=== PATIENT | male | born 1960 | race Caucasian/White ===

== ENCOUNTER → 2020-04-09 10:51 | Outpatient (CLI) | payer OTHER, SELFPAY ==
[2020-04-09 11:33] LABS: BUN Creatinine Ratio 22.1 (6-22); Blood Urea Nitrogen 17 mg/dL (9-20); Estimated Glomerular Filt Rate > 60.0 mL/min (>60)
--- NOTE | 2020-04-09 12:25 | DI.CT.S_ITS ---
PROCEDURE: CT ABDOMEN PELVIS W CON INDICATIONS: abd pain, mostly upper abd TECHNIQUE: After the administration of oral and intravenous contrast, 5 mm thick sections acquired from the diaphragms to the symphysis. 5 mm thick coronal and sagittal reformats were performed. For radiation dose reduction, the following was used: automated exposure control, adjustment of mA and/or kV according to patient size. COMPARISON: None. FINDINGS: Image quality: Excellent. ABDOMEN: Lung bases: Lung bases are clear. Heart size is normal. Solid organs: Liver is normal in size and enhancement. Gallbladder is normal. Biliary system is non-dilated. Pancreas enhances normally. Spleen is normal in size and enhancement. No adrenal nodules. Kidneys are normal in size and enhancement, without hydronephrosis. There is a 3.5 cm simple cyst in the inferior pole of the left kidney. A tiny 5 mm cortical cyst is seen in the right kidney. Peritoneum and bowel: Stomach, small bowel, and colon loops are normal in caliber and wall thickness. There is a large amount of stool in colon. Appendix is normal. No free fluid or air. Nodes and vessels: No retroperitoneal or mesenteric adenopathy. Aorta and inferior vena cava are normal in caliber. Miscellaneous: No ventral hernias. PELVIS: Genitourinary: Bladder wall thickness is normal. Miscellaneous: No inguinal hernias or adenopathy. Bones: No suspicious bony lesions. No vertebral body compression fractures. IMPRESSION: 1. A cause for abdominal pain is not definitively identified. 2. A large amount of stool in colon. 3. Bilateral simple appearing renal cysts. Dictated by: Alber Mejia M.D. on 04/09/2020 at 17:08 Approved by: Alber Mejia M.D. on 04/09/2020 at 18:09
== END ==
PROVIDERS: PCP Family Medicine; Referring Provider Specialist; Visit Provider Specialist
DX: R10.10 Upper abdominal pain, unspecified (principal); N28.1 Cyst of kidney, acquired
CPT/HCPCS: 36415; 74177; 82565; 84520; Q9967

== ENCOUNTER → 2020-12-03 09:56 | Outpatient (CLI) | payer OTHER, SELFPAY ==
[2020-12-03] MEDS: COVID-19 VACC #1, MRNA(MOD) 100 MCG/0.5 ML VIAL IM (10:04)
== END ==
PROVIDERS: PCP Family Medicine; Visit Provider Internal Medicine
DX: Z23 Encounter for immunization (principal)
CPT/HCPCS: 0011A; 91301

== ENCOUNTER → 2020-12-31 09:56 | Outpatient (CLI) | payer OTHER, SELFPAY ==
[2020-12-31] MEDS: COVID-19 VACC #2, MRNA(MOD) 100 MCG/0.5 ML VIAL IM (10:00)
== END ==
PROVIDERS: PCP Family Medicine; Visit Provider Internal Medicine
DX: Z23 Encounter for immunization (principal)
CPT/HCPCS: 0012A; 91301

== ENCOUNTER → 2021-06-26 08:09 | Outpatient (CLI) | payer OTHER, SELFPAY ==
[2021-06-26 20:00] LABS: COVID19 - ORCAS (NP or Nasal) Negative (Negative)
== END ==
PROVIDERS: PCP Physician Assistant; Visit Provider Family Medicine
DX: Z20.822 Contact with and (suspected) exposure to COVID-19 (principal)
CPT/HCPCS: U0003

== ENCOUNTER → 2024-01-10 10:11 | Outpatient (CLI) | payer MEDICARE, SELFPAY ==
[2024-01-10 19:29] LABS: Add Manual Diff / Slide Review NO; Basophils Absolute Auto 0 /uL (0-100); Basophils Percent Auto 0.8 % (0-2); Eosinophils Absolute Auto 100 /uL (0-450); Eosinophils Percent Auto 2.6 % (2-4); Hematocrit 41.9 % (41-53); Hemoglobin 14.4 g/dL (13.5-17.5); Lymphocytes Absolute Auto 1200 /uL (1100-4500); Lymphocytes Percent Auto 24.6 % (25-40); Mean Corpuscular HGB Conc 34.4 % (30-36); Mean Corpuscular Hemoglobin 31.5 PG (26-34); Mean Corpuscular Volume 91.7 fL (80-100); Monocytes Absolute Auto 400 /uL (0-900); Monocytes Percent Auto 9.2 % (3-14); Neutrophils Absolute Auto 3000 /uL (1500-7000); Neutrophils Percent Auto 62.8 % (50-75); Platelet Count 242 X10^3/uL (150-400); Red Blood Cell Count 4.57 X10^6/uL (4.5-5.9); Red Cell Distribution Width 13.4 % (11.6-14.8); White Blood Cell Count 4.8 X10^3/uL (4.5-11.0)
[2024-01-10 19:38] LABS: Alanine Aminotransferase 18 IU/L (<50); Albumin 4.5 g/dL (3.5-5.0); Albumin Globulin Ratio 1.6 (1.0-2.8); Alkaline Phosphatase 38 U/L (38-126); Aspartate Aminotransferase 28 IU/L (17-59); BUN Creatinine Ratio 16.9 (6-22); Blood Urea Nitrogen 13 mg/dL (9-20); Calcium 9.7 mg/dL (8.4-10.2); Carbon Dioxide 27 mmol/L (22-32); Chloride 104 mmol/L (98-107); Cholesterol 192 mg/dL (140-199); Estimated Glomerular Filt Rate > 60 mL/min (>60); Globulin 2.8 g/dL (1.7-4.1); Glucose 103 mg/dL (80-110); HDL Cholesterol 58 mg/dL (40-60); HEMOLYSIS < 15 (0-50); LDL Cholesterol Calculated 118 mg/dL (<100); Potassium 4.4 mmol/L (3.4-5.1); Sodium 138 mmol/L (137-145); Total Protein 7.3 g/dL (6.3-8.2); Triglycerides 78 mg/dL (35-150)
[2024-01-10 19:56] LABS: TSH w/ Reflex to FT4 2.29 uIU/mL (0.47-4.68)
[2024-01-10 19:58] LABS: Prostate Specific Antigen Scrn 0.607 ng/mL (0.1-4.0)
[2024-01-11 06:10] LABS: Fecal Immunochemical Test Negative (Negative)
== END ==
PROVIDERS: PCP Physician Assistant; Visit Provider Physician Assistant
DX: Z12.11 Encounter for screening for malignant neoplasm of colon (principal); Z12.5 Encounter for screening for malignant neoplasm of prostate; Z11.59 Encounter for screening for other viral diseases; Z13.6 Encounter for screening for cardiovascular disorders; R03.0 Elevated blood-pressure reading, without diagnosis of hypertension; R25.1 Tremor, unspecified; Z80.8 Family history of malignant neoplasm of other organs or systems; Z79.899 Other long term (current) drug therapy
CPT/HCPCS: 80053; 80061; 82274; 84443; 85025; 86803; G0103

== ENCOUNTER 2024-10-30 09:01 | Day surgery (SDC) | payer MEDICARE, SELFPAY ==
[2024-10-30 09:12] VITALS: BP 144/87; PULSE 70; RESP 16; TEMP 36.4; O2SAT 100
[2024-10-30] MEDS: LACTATED RINGERS 1,000 ML 42 ML IV (09:12)
--- NOTE | 2024-10-30 09:21 | PM.HP.IH.1 ---
History of Present Illness History of Present Illness Date Patient Seen: 10/30/24 Time Patient Seen: 09:31 Date of Onset of Symptoms: 10/30/24 Chief complaint: SDC Narrative: This is a 64-year-old gentleman who presents for screening colonoscopy. Patient presents today states that he has had chronic abdominal pain in the right upper quadrant epigastric region for the past 7 years. Last screening colonoscopy was performed approximately 8 years ago. Patient denies having any workup to identify the source of his abdominal pain. He states that the pain radiates like a band across the abdomen. Denies any relation to food. No associated symptoms with the abdominal pain. Patient states that his father also had chronic abdominal pain as well. In addition to the abdominal pain, patient endorses memory changes. [facility] Surgical History (Updated 03/25/21 @ 12:11 by Sue Calvo PA-C) Hx of vascular surgery Social History Smoking Status: Never smoker alcohol intake: current substance use type: does not use Meds Home Medications and Allergies Allergies Allergy/AdvReac Type Severity Reaction Status Date / Time No Known Drug Allergies Allergy Verified 10/30/24 09:11 Review of Systems Constitutional Constitutional: Denies fatigue Eyes Eyes: Reports system reviewed and no additional complaints, except as documented and Denies diplopia ENT Ears, Nose, Mouth, and Throat: No system reviewed and no additional complaints, except as documented Cardiovascular Cardiovascular: Denies system reviewed and no additional complaints, except as documented, Denies chest pain and Denies chest pain at rest Respiratory Respiratory: Reports system reviewed and no additional complaints, except as documented and Denies chest congestion Gastrointestinal Gastrointestinal: Reports abdominal pain, Denies change in bowel habits, Denies heartburn and Denies fecal incontinence Genitourinary Genitourinary: Reports system reviewed and no additional complaints, except as documented Musculoskeletal Musculoskeletal: Reports system reviewed and no additional complaints, except as documented Integumentary/Breasts Skin/Breast: Reports system reviewed and no additional complaints, except as documented Neurologic Neurologic: Reports confusion and Reports memory loss Psychiatric Psychiatric: Reports system reviewed and no additional complaints, except as documented, Reports confusion and Reports memory loss Endocrine Endocrine: Reports system reviewed and no additional complaints, except as documented and Denies fatigue Hematologic/Lymphatic Hematologic/Lymphatic: Reports system reviewed and no additional complaints, except as documented Assessment & Plan Assessment and plan (1) Colon cancer screening: Status: Acute (2) Chronic upper abdominal pain: Status: Acute Assessment & Plan narrative: This is a 64-year-old gentleman who presents for screening colonoscopy in the setting of chronic abdominal pain. We will evaluate colonoscopy today for any source of abdominal pain. Patient will need to undergo further additional workup to identify a source of pain with his PCP. -ParQ was held patient agrees to proceed with screening colonoscopy. Risks included bleeding, infection, perforation and anesthetic risks were explained to the patient he agrees to proceed. -discharge patient postprocedure. Patient is higher risk of having difficulty with transportation after anesthesia. He understands the risk of transportation via very postprocedure and agrees to proceed home Time-Based Coding :: 30 minutes spent with patient and on the chart (including review of chart, obtaining history, exam, reviewing outside data, placing orders, documenting exam and treatment plan, and counseling patient) on October 30, 2024 [employer] Document charge(s): Yes Charge Codes Inpatient/observation care including admit and discharge same day: [id number]
[2024-10-30 09:46] VITALS: BP 111/66; PULSE 68; RESP 14; TEMP 36.2; O2SAT 97
--- NOTE | 2024-10-30 09:50 | PM.OP.COLON ---
Operative Date/Time/Diagnoses Date of procedure: 10/30/24 Time of procedure: 09:40 Pre-op diagnosis: Screening colonoscopy Chronic abdominal pain Post-op diagnosis: same Procedure & Clinicians Study performed: 1. Aborted screening colonoscopy Same procedure as scheduled: Yes Indications: This is a 64-year-old gentleman who presents for screening colonoscopy. Patient presents today states that he has had chronic abdominal pain in the right upper quadrant epigastric region for the past 7 years. ParQ was held the patient agreed to proceed with screening colonoscopy. Surgeon: Ayaka Boudreaux Procedure Notes SCOAP/Timeout: 939 Procedure in detail: Patient was brought to the endoscopy suite. Monitored anesthesia care was induced and the patient was sedated without incident. A digital rectal exam was performed and stool was identified on exam. No hemorrhoids were palpated. Upon advancing the colonoscope via direct visualization, the patient was found to have stool within the rectal vault. The scope was advanced to the sigmoid colon where there was additional copious amounts of vegetable contents throughout the sigmoid colon making it difficult to visualize the mucosa. Due to the stool being present, we proceeded with removing the colonoscope and aborting the procedure secondary to incomplete bowel prep. Scope withdrawal time: 2 Sedation minutes: 5 Findings: other findings (Incomplete bowel prep) Specimen(s): none sent Complications: none Impression: -incomplete bowel prep. Would recommend patient return for EGD and colonoscopy in the next 6 months to evaluate for source of abdominal pain as well as perform screening colonoscopy. Post-procedure Plan for aftercare: Recommend repeat colonoscopy and an add EGD in the next 6 months to identify source of abdominal pain Follow up: weeks (Two weeks) Disposition: PACU
[2024-10-30 09:51] VITALS: BP 111/68; PULSE 59; RESP 12; O2SAT 98
[2024-10-30 09:56] VITALS: BP 105/72; PULSE 53; RESP 10; O2SAT 100
[2024-10-30 10:02] VITALS: BP 130/78; PULSE 56; RESP 10; TEMP 36.5; O2SAT 100
== END 2024-10-30 10:15 | disposition home or self-care (01) ==
PROVIDERS: PCP Physician Assistant; Referring Provider Surgery; Visit Provider Surgery
PROC: 0DJD8ZZ Inspection of Lower Intestinal Tract, Via Natural or Artificial Opening Endoscopic (ICD-10-PCS; CPT 45378; principal; 2024-10-30 09:15)
DX: R10.10 Upper abdominal pain, unspecified (principal); Z53.09 Procedure and treatment not carried out because of other contraindication
CPT/HCPCS: 45378; J2704

== ENCOUNTER → 2024-12-31 10:29 | Outpatient (CLI) | payer MEDICARE, SELFPAY ==
--- NOTE | 2024-12-31 10:31 | DI.US.S_ITS ---
PROCEDURE: US THYROID INDICATIONS: Screening. Sensation of neck fullness. TECHNIQUE: Real-time scanning was performed of the thyroid gland, with image documentation. COMPARISON: None. FINDINGS: Thyroid: Right lobe measures 4.8 x 2.1 x 1.5 cm. Left lobe measures 4.5 x 1.8 x 1.6 cm. Isthmus is 0.5 cm thick. Echotexture is homogeneous. Subcentimeter nodule seen in the left lower lobe, this does not meet criteria for sampling or follow-up. IMPRESSION: No actionable thyroid nodule identified by TI-RADS criteria. Dictated by: Devan Perez M.D. on 12/31/2024 at 15:32 Approved by: Devan Perez M.D. on 12/31/2024 at 15:33
--- NOTE | 2024-12-31 10:31 | DI.US.S_ITS ---
PROCEDURE: US ABD AORTA ANEURYSM SCREEN INDICATIONS: screening TECHNIQUE: Real-time scanning was performed of the aorta and proximal common iliac arteries, with image documentation. COMPARISON: None. FINDINGS: No ultrasound evidence of abdominal aortic aneurysm. Aorta: Abdominal aorta is normal in caliber throughout its length. Proximal aorta 2.3 cm diameter. Mid aorta 2.2 cm diameter. Distal aorta 2.0 cm diameter. Iliacs: Proximal common iliac arteries are normal in caliber, 1.3 and 1.1 cm diameter. IMPRESSION: No ultrasound evidence of aneurysm Dictated by: Edward Ho M.D. on 12/31/2024 at 11:40 Approved by: Edward Ho M.D. on 12/31/2024 at 11:42
== END ==
LOC: US 10:30
PROVIDERS: PCP Physician Assistant; Referring Provider Physician Assistant; Visit Provider Physician Assistant
DX: Z13.6 Encounter for screening for cardiovascular disorders (principal); Z13.29 Encounter for screening for other suspected endocrine disorder; Z80.8 Family history of malignant neoplasm of other organs or systems
CPT/HCPCS: 76536; 76706

== ENCOUNTER → 2025-01-16 09:37 | Outpatient (CLI) | payer MEDICARE, SELFPAY ==
[2025-01-16 20:23] LABS: Add Manual Diff / Slide Review NO; Basophils Absolute Auto 0 /uL (0-100); Basophils Percent Auto 0.5 % (0-2); Eosinophils Absolute Auto 0 /uL (0-450); Eosinophils Percent Auto 1.1 % (2-4); Hematocrit 42.2 % (41-53); Hemoglobin 14.2 g/dL (13.5-17.5); Lymphocytes Absolute Auto 1000 /uL (1100-4500); Lymphocytes Percent Auto 22.8 % (25-40); Mean Corpuscular HGB Conc 33.7 % (30-36); Mean Corpuscular Hemoglobin 31.2 PG (26-34); Mean Corpuscular Volume 92.6 fL (80-100); Monocytes Absolute Auto 400 /uL (0-900); Monocytes Percent Auto 9.2 % (3-14); Neutrophils Absolute Auto 2900 /uL (1500-7000); Neutrophils Percent Auto 66.4 % (50-75); Platelet Count 261 X10^3/uL (150-400); Red Blood Cell Count 4.56 X10^6/uL (4.5-5.9); Red Cell Distribution Width 13.3 % (11.6-14.8); White Blood Cell Count 4.3 X10^3/uL (4.5-11.0)
[2025-01-16 20:40] LABS: Alanine Aminotransferase 21 IU/L (<50); Albumin 4.5 g/dL (3.5-5.0); Albumin Globulin Ratio 1.7 (1.0-2.8); Alkaline Phosphatase 41 U/L (38-126); Aspartate Aminotransferase 33 IU/L (17-59); BUN Creatinine Ratio 20.3 (6-22); Bilirubin Total 0.7 mg/dL (0.2-1.3); Blood Urea Nitrogen 16 mg/dL (9-20); Calcium 9.7 mg/dL (8.4-10.2); Carbon Dioxide 29 mmol/L (22-32); Chloride 101 mmol/L (98-107); Cholesterol 192 mg/dL (140-199); Estimated Glomerular Filt Rate > 60 mL/min (>60); Globulin 2.6 g/dL (1.7-4.1); Glucose 108 mg/dL (70-99); HDL Cholesterol 57 mg/dL (40-60); HEMOLYSIS < 15 (0-50); LDL Cholesterol Calculated 125 mg/dL (<100); Magnesium 1.9 mg/dL (1.6-2.3); Potassium 4.9 mmol/L (3.4-5.1); Sodium 137 mmol/L (137-145); Total Protein 7.1 g/dL (6.3-8.2); Triglycerides 48 mg/dL (35-150)
[2025-01-16 21:26] LABS: Hep C Virus Ab w/Reflex Quant NEGATIVE s/c (NEGATIVE)
[2025-01-16 21:28] LABS: Prostate Specific Antigen Scrn 0.675 ng/mL (0.1-4.0)
[2025-01-16 22:05] LABS: Folate 4.3 ng/mL (2.76-20.0); Vitamin B12 337 pg/mL (239-931)
== END ==
PROVIDERS: PCP Physician Assistant; Visit Provider Physician Assistant
DX: Z12.5 Encounter for screening for malignant neoplasm of prostate (principal); Z13.6 Encounter for screening for cardiovascular disorders; Z80.8 Family history of malignant neoplasm of other organs or systems; F10.90 Alcohol use, unspecified, uncomplicated; R41.82 Altered mental status, unspecified; R25.1 Tremor, unspecified; Z11.59 Encounter for screening for other viral diseases
CPT/HCPCS: 80053; 80061; 82607; 82746; 83735; 84443; 85025; 86803; G0103

== ENCOUNTER → 2025-04-02 11:36 | Outpatient (CLI) | payer MEDICARE, SELFPAY ==
[2025-04-02 19:26] LABS: Add Manual Diff / Slide Review NO; Hematocrit 42.1 % (41-53); Hemoglobin 14.2 g/dL (13.5-17.5); Lymphocytes Absolute Auto 1100 /uL (1100-4500); Mean Corpuscular HGB Conc 33.7 % (30-36); Mean Corpuscular Hemoglobin 31.2 PG (26-34); Mean Corpuscular Volume 92.5 fL (80-100); Platelet Count 261 X10^3/uL (150-400)
== END ==
PROVIDERS: PCP Physician Assistant; Visit Provider Physician Assistant
DX: R79.89 Other specified abnormal findings of blood chemistry (principal)
CPT/HCPCS: 85025

== ENCOUNTER → 2025-06-11 11:37 | Outpatient (CLI) | payer MEDICARE, SELFPAY ==
--- NOTE | 2025-06-11 11:38 | DI.MRI.S_ITS ---
PROCEDURE: MR HEAD/BRAIN WO CON INDICATIONS: Parkinsonism TECHNIQUE: Non-contrast axial T1 spin echo, axial T2 fast spin echo, sagittal and axial FLAIR, coronal T2 fast spin echo, axial gradient echo, axial diffusion and ADC through the brain. COMPARISON: None. FINDINGS: Image quality: Excellent. CSF spaces: Ventricles appear symmetric in size and shape. Basal cisterns are patent. No extra-axial fluid collections. Brain: No intracranial bleeds or mass effects. There is cerebral volume loss for age. There are periventricular and deep white matter chronic small vessel ischemic changes. Brainstem appears normal. Diffusion-weighted images show no acute infarct. No chronic ischemic insults. Normal intravascular flow voids are present. Skull and face: Calvarial bone marrow is normal in signal. Orbits are normal. Sinuses: Sinuses and mastoids are clear. IMPRESSION: No acute intracranial abnormality. Mild microangiopathic ischemic changes and volume loss. Dictated by: Kathie Stallings M.D. on 06/11/2025 at 14:46 Approved by: Kathie Stallings M.D. on 06/11/2025 at 14:54
== END ==
PROVIDERS: PCP Physician Assistant; Visit Provider Student in an Organized Health Care Education/Training Program
DX: G20.C Parkinsonism, unspecified (principal)
CPT/HCPCS: 70551